=== PATIENT | male | born 1960 | race Caucasian/White ===

== ENCOUNTER → 2024-09-24 09:16 | Outpatient (REF) | payer BC, SELFPAY | LOC: RAD 09:16 | PROVIDERS: ATTENDING PHYSICIAN Nurse Practitioner | DX: M54.50 Low back pain, unspecified (principal) | CPT/HCPCS: 72110 ==

== ENCOUNTER → 2024-12-27 17:17 | Outpatient (REF) | payer OTHER, SELFPAY | LOC: MRI 3T 17:17 | PROVIDERS: ATTENDING PHYSICIAN Physician Assistant; FAMILY PHYSICIAN Internal Medicine | DX: M54.16 Radiculopathy, lumbar region (principal) | CPT/HCPCS: 70030; 72148 ==